=== PATIENT | female | born 1950 | race Caucasian/White ===

== ENCOUNTER → 2024-05-31 10:42 | Outpatient (REF) | payer MEDICARE, OTHER, SELFPAY | LOC: RAD 10:42 | PROVIDERS: ATTENDING PHYSICIAN Student in an Organized Health Care Education/Training Program; FAMILY PHYSICIAN Student in an Organized Health Care Education/Training Program | DX: Z87.19 Personal history of other diseases of the digestive system (principal); R15.9 Full incontinence of feces | CPT/HCPCS: 74019 ==